=== PATIENT | female | born 1935 | race Caucasian/White ===

== ENCOUNTER 2020-01-13 06:21 | Outpatient (CLI) | payer MEDICARE, OTHER | END 2020-01-13 06:22 | disposition critical access hospital (66) | LOC: EMS 06:21 | PROVIDERS: ATTEND Surgery | DX: R10.9 Unspecified abdominal pain (principal); K92.0 Hematemesis | CPT/HCPCS: A0425; A0429 ==

== ENCOUNTER 2020-01-13 06:54 | Inpatient (IN) | payer MEDICARE, OTHER ==
[2020-01-13 07:57] LABS: INR 1.3 (0.8-1.2); PT - PROTHROMBIN TIME 14.2 secs (9.9-12.6)
[2020-01-13] MEDS ORDERED: PANTOPRAZOLE 40 MG VIAL IVP STA (08:02)
[2020-01-13] MEDS ORDERED: FOLIC ACID INJ 1 MG, THIAMINE INJ 100 MG, MAGNESIUM SULFATE 2 GM, MULTIVITAMIN 10 ML in... IV STA ×5 (08:03)
[2020-01-13 08:04] LABS: ALBUMIN 2.7 g/dL (3.2-5.5); ALBUMIN/GLOBULIN RATIO 1.4 (1.0-2.2); ALKALINE PHOSPHATASE 37 IU/L (42-121); ALT ALANINE AMINOTRANSFERASE 17 IU/L (10-60); AST ASPARTATE AMINOTRANSFERASE 15 IU/L (10-42); BILIRUBIN,TOTAL 0.5 mg/dL (0.2-1.0); BUN - BLOOD UREA NITROGEN 45 mg/dL (6-20); CALCIUM 7.8 mg/dL (8.5-10.3); CARBON DIOXIDE - CO2 28 mmol/L (21-32); CHLORIDE 102 mmol/L (101-111); CREATININE 0.9 mg/dL (0.4-1.0); GLUCOSE 162 mg/dL (70-100); LIPASE 36 U/L (22-51); SODIUM 136 mmol/L (135-145); TOTAL PROTEIN 4.6 g/dL (6.7-8.2)
--- NOTE | 2020-01-13 08:05 | ED Physician Documentation ---
PD HPI GI BLEED - Stated complaint Stated Complaint: ABD PX - Chief complaint Chief Complaint: Abd Pain - History obtained from History obtained from: Patient, EMS - History of Present Illness Timing - onset: Enter time (521), Today Timing - duration: Hours Timing - details: Abrupt onset, Still present Associated symptoms: Hematemesis, Black/tarry stool Contributing factors: Alcohol use, Aspirin use, NSAID use. No: Recent antibiotics, Anticoagulated Improved by: Vomiting Similar symptoms before: Has not had sx before Recently seen: Not recently seen Review of Systems Constitutional: denies: Fever, Chills, Myalgias, Fatigue Eyes: denies: Decreased vision Ears: denies: Ear pain Nose: denies: Rhinorrhea / runny nose, Congestion Throat: denies: Sore throat Cardiac: denies: Chest pain / pressure, Palpitations Respiratory: reports: Cough. denies: Dyspnea GI: reports: Abdominal Pain, Nausea, Vomiting, Constipation, Diarrhea, Hematemesis, Bloody / black stool : denies: Dysuria, Frequency Skin: denies: Rash Musculoskeletal: denies: Neck pain, Back pain, Extremity pain Neurologic: denies: Generalized weakness, Focal weakness, Numbness PD PAST MEDICAL HISTORY - Past Medical History Cardiovascular: Hypertension, Coronary artery disease - Past Surgical History Cardiovascular: CABG - Allergies Allergies/Adverse Reactions: Allergies Allergy/AdvReac Type Severity Reaction Status Date / Time No Known Drug Allergies Allergy Verified 01/13/20 07:36 PD ED PE NORMAL - Vitals Vital signs reviewed: Yes (hypertensive with wide pulse pressure ) - General General: Alert and oriented X 3, No acute distress, Well developed/nourished, Other (pale appearing female pleasant and cooperative ) - HEENT HEENT: Atraumatic, PERRL, EOMI, Other (blood tinged lips ) - Neck Neck: Supple, no meningeal sign, No bony TTP - Cardiac Cardiac: RRR, No murmur - Respiratory Respiratory: No respiratory distress, Clear bilaterally - Abdomen Abdomen: Soft, Other (mild epigastric tenderness isolated to epigastrium without gaurding or rebound no referred tenderness. ) - Back Back: No CVA TTP, No spinal TTP - Derm Derm: Normal color, Warm and dry, No rash - Extremities Extremities: No deformity, No edema - Neuro Neuro: Alert and oriented X 3, management instructor 2-12 intact, No motor deficit, No sensory deficit, Normal speech Eye Opening: Spontaneous Motor: Obeys Commands Verbal: Oriented GCS Score: 15 - Psych Psych: Normal mood, Normal affect Results - Vitals Vitals: Vital Signs - 24 hr 01/13/20 01/13/20 01/13/20 06:55 07:28 09:00 Temperature 36.5 C Heart Rate 95 89 99 Respiratory 18 14 15 Rate Blood Pressure 137/48 H 116/56 L 124/49 L O2 Saturation 97 99 99 01/13/20 09:05 Temperature 36.9 C Heart Rate 95 Respiratory 21 Rate Blood Pressure 124/49 L O2 Saturation Oxygen O2 Source Room air - Labs Labs: Laboratory Tests 01/13/20 01/13/20 01/13/20 06:18 07:30 07:30 WBC 9.1 RBC 1.96 L Hgb 6.3 L* Hct 19.8 L* MCV 101.0 H MCH 32.1 H MCHC 31.8 L RDW 12.9 Plt Count 238 MPV 9.5 Neut # (Auto) 7.9 H Lymph # (Auto) 0.5 L Dane # (Auto) 0.5 Eos # (Auto) 0.0 Baso # (Auto) 0.0 Absolute Nucleated RBC 0.00 Nucleated RBC % 0.0 PT 14.2 H INR 1.3 H Sodium Potassium Chloride Carbon Dioxide Anion Gap BUN Creatinine Estimated GFR (MDRD) Glucose Calcium Total Bilirubin AST ALT Alkaline Phosphatase Total Protein Albumin Globulin Albumin/Globulin Ratio Lipase Ethyl Alcohol Blood Type A POSITIVE Blood Type Recheck Antibody Screen NEGATIVE Crossmatch IS Only See Detail 01/13/20 01/13/20 07:30 08:24 WBC RBC Hgb Hct MCV MCH MCHC RDW Plt Count MPV Neut # (Auto) Lymph # (Auto) Dane # (Auto) Eos # (Auto) Baso # (Auto) Absolute Nucleated RBC Nucleated RBC % PT INR Sodium 136 Potassium 3.5 Chloride 102 Carbon Dioxide 28 Anion Gap 6.0 BUN 45 H Creatinine 0.9 Estimated GFR (MDRD) 60 L Glucose 162 H Calcium 7.8 L Total Bilirubin 0.5 AST 15 ALT 17 Alkaline Phosphatase 37 L Total Protein 4.6 L Albumin 2.7 L Globulin 1.9 L Albumin/Globulin Ratio 1.4 Lipase 36 Ethyl Alcohol < 5.0 Blood Type Blood Type Recheck A POSITIVE Antibody Screen Crossmatch IS Only PD MEDICAL DECISION MAKING - ED course Complexity details: reviewed results, re-evaluated patient, considered differential, d/w patient, d/w principal consultant ([id number] peralta plan on scoping ) ED course: 84-year-old female with a history of coronary artery disease and hypertension has developed an abdominal pain over the past 4 days and she has been taking a lot more aspirin than usual and this morning she had vomiting of bright red blood as well as jet black stool from the rectum. She comes into the emergency department pale and has elevated BUN and what appears to be blood loss anemia. Her anemia is in the transfusion range and transfusion is begun in the emergency department. She is also administered Protonix intravenously and a banana bag. Dr. Franklin is consulted in the case and will back up with scoping as needed and Dr. Durán is consulted the case and graciously agrees to admit the patient to the hospital for further care. Departure - Departure Disposition: 66 [facility] DC/Xfer Clinical Impression: GI bleeding Qualifiers: GI bleed type/associated pathology: gastrointestinal hemorrhage with hematemesis Qualified Code(s): K92.0 - Hematemesis Condition: Stable
[2020-01-13 08:06] LABS: BASOPHILS % (AUTO) 0.4 %; EOSINOPHILS % (AUTO) 0.3 %; LYMPHOCYTES # (AUTO) 0.5 10^3/uL (1.5-3.5); LYMPHOCYTES % (AUTO) 5.9 %; MEAN CORPUSCULAR HEMOGLOBIN 32.1 pg (27.0-31.0); MEAN CORPUSCULAR HGB CONC 31.8 g/dL (32.0-36.0); MEAN PLATELET VOLUME 9.5 fL (7.9-10.8); MONOCYTES # (AUTO) 0.5 10^3/uL (0.0-1.0); MONOCYTES % (AUTO) 5.3 %; NEUTROPHILS # (AUTO) 7.9 10^3/uL (1.5-6.6); NEUTROPHILS % (AUTO) 87.1 %; PLT - PLATELET COUNT 238 10^3/uL (130-450); RED BLOOD COUNT 1.96 10^6/uL (4.20-5.40); RED CELL DISTRIBUTION WIDTH 12.9 % (12.0-15.0); WHITE BLOOD COUNT 9.1 x10^3/uL (4.8-10.8)
[2020-01-13 08:11] LABS: HGB - HEMOGLOBIN 6.3 g/dL (12.0-16.0)
[2020-01-13] MEDS ORDERED: SODIUM CHLORIDE FLUSH 0.9% 10 ML SYRINGE IVP PRN (09:08)
[2020-01-13] MEDS ORDERED: ONDANSETRON 4 MG/2 ML VIAL IVP PRN (09:08)
--- NOTE | 2020-01-13 09:14 | HISTORY & PHYSICAL EXAMINATION ---
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 She states that this morning she woke up at around 4:40 AM and had some epigastric pain and nausea. She went to the bathroom and she had a large episode of hematemesis. She then had a bowel movement and noticed her sto ol was dark.. She had another episode of hematemesis after EMS had arrived. She reports she has been taking full dose aspirin 3 tablets twice a day for the past month to help with her arthritis pain. She has never had endoscopy but she did have a colonoscopy over 10 years ago which was unremarkable to her knowledge. She currently reports some mild epigastric discomfort but no significant abdominal pain. She reports no nausea or vomiting at this time. She would like to drink some water. She reports feeling fatigued and weak since yesterday evening. She reports no chest pain, dyspnea, fevers, chills. She does drink a glass of wine a few times a week with her last beverage being yesterday. She does not drink alcohol on a daily basis. In the emergency department, she is on be afebrile temperature of 36.9 C. She is tachycardic with a heart of 95. Blood pressure is 124/49. She is not tachypneic and saturating well on room air. Labs are significant for hemoglobin of 6.3. Her INR was 1.3. BUN is elevated at 45. She was given 1 unit of blood in the emergency department and medicine was consulted for admission. The emergency department provider did speak with general surgery and they are aware of the patient for endoscopy. I did discuss goals of care the patient and she would like to be a DNR with no heroic measures. History - Past Medical History Cardiovascular: reports: Hypertension, Coronary artery disease, Valve disorder GI: reports: None FURNACE CHARGER: reports: Ovarian cysts Musculoskeletal: reports: Osteoarthritis - Past Surgical History /FURNACE CHARGER: reports: Other (Ovarian cystectomy x2.) Cardiovascular: reports: CABG, Valve replacement (Bioproshetic valve per janice hammer.) - Family & Social History Family History Comment/Other: Reports her father from myocardial infarction at the age of 49. Her mother from breast cancer in her early 50s. Her brother from lung cancer in his 50s. Living arrangement: At home Living Situation: With family Social History Notes: She lives at home with her daughter, rAt. She did smoke a pack a day for approximately 30 years but quit before she turned 51. She does drink a glass of wine a few times a week but does not drink on a daily basis. Meds/Allgy - Home Medications Home Medications: Ambulatory Orders Medication Instructions Recorded Confirmed Ascorbic Acid [Vitamin C] 500 mg PO DAILY 01/13/20 01/13/20 Aspirin [Aspirin EC] 81 mg PO DAILY 01/13/20 01/13/20 Atorvastatin Calcium 40 mg PO QPM 01/13/20 01/13/20 Chlorthalidone 25 mg PO DAILY 01/13/20 01/13/20 Ferrous Sulfate 325 mg PO DAILYWM 01/13/20 01/13/20 Losartan Potassium 100 mg PO DAILY 01/13/20 01/13/20 carvediloL [Carvedilol] 12.5 mg PO BID 01/13/20 01/13/20 - Allergies Allergies/Adverse Reactions: Allergies Allergy/AdvReac Type Severity Reaction Status Date / Time No Known Drug Allergies Allergy Verified 01/13/20 07:36 Review of Systems - Constitutional Constitutional: reports: Fatigue, Malaise, Weakness. denies: Fever, Chills, Poor appetite - Ears, Nose & Throat Ears, Nose & Throat: denies: Nasal congestion - Cardiovascular Cariovascular: denies: Chest pain, Lightheadedness, Exertional dyspnea, Decr. exercise tolerance - Respiratory Respiratory: reports: Cough. denies: Sputum production, SOB at rest, SOB with exertion - Gastrointestinal Gastrointestinal: reports: Abdominal pain, Black stools, Nausea, Vomiting, [place] blood emesis, Bloating - Genitourinary Genitourinary: denies: Dysuria, Frequency, Urgency, Hematuria - Musculoskeletal Musculoskeletal: denies: Muscle pain - Neurological Neurological: reports: General weakness, Headache. denies: Focal weakness, Dizziness, Numbness - Hematologic/Lymphatic Hematologic/Lymphatic: denies: Bleeding tendencies - All Other Systems All Other Systems: reports: Reviewed and negative Prior Level of Functionality: She is independent with her ADLs. Exam - Vital Signs Reviewed Vital Signs: Yes Vital Signs: Vital Signs x48h Temp Pulse Resp BP Pulse Ox 01/13/20 09:12 98.8 C H 99 16 130/58 L 01/13/20 09:05 36.9 C 95 21 124/49 L 01/13/20 09:00 99 15 124/49 L 99 01/13/20 07:28 89 14 116/56 L 99 01/13/20 06:55 36.5 C 95 18 137/48 H 97 - Physical Exam General Appearance: positive: No acute distress, Alert Eyes Bilateral: positive: Normal inspection, Other (Conjunctivae pallor.) ENT: positive: Pharynx nml, Other (There is dry blood around the bilateral nares. No blood noted in the oropharynx.) Neck: positive: Nml inspection Respiratory: positive: No respiratory distress. negative: Wheezes, Rales, Rhonchi Cardiovascular: positive: No murmur, Tachycardia. negative: Irregularly irregular, Bradycardia, Systolic murmur, Diastolic murmur Abdomen: positive: Nml bowel sounds, Tenderness (Mild epigastric tenderness.). negative: Non-tender, Guarding, Rebound Skin: positive: Warm, Dry, Pallor Extremities: positive: Full ROM, No pedal edema Neurologic/Psychiatric: positive: Oriented x3, Motor nml. negative: Disoriented to place, Disoriented to time Conclusion/Plan - Problem List (1) Upper GI bleed Conclusion/Plan: This is likely secondary to her NSAID use and suspect either gastritis or an ulcer as the culprit. Although she does drink alcohol, this is not on a daily basis and do not suspect cirrhosis or varices. Presented with hematemesis and dark bloody stools. She is anemic with hemoglobin less than 7. Start her on Protonix IV twice daily. Clear liquid diet for the time being. N.p.o. at midnight. I spoke with general surgery and they will perform an endoscopy in the morning. (2) Acute blood loss anemia Conclusion/Plan: Secondary to the upper GI bleed. Hemoglobin is 6.3 on admission. She received 1 unit in the emergency department and we will transfuse another 1 unit of packed red blood cells. SCDs for DVT prophylaxis. No chemical DVT prophylaxis given her GI bleed. We will trend her hemoglobin every 8 hours. Goal hemoglobin greater than 8 given her history of coronary artery disease. 2 units of packed red blood cells are on hold. (3) Coronary artery disease Conclusion/Plan: She is on aspirin, atorvastatin, carvedilol at home. Currently denies any angina. We will resume her carvedilol if her blood pressure remains stable as he did not want to become hypotensive given her GI bleed. We will hold aspirin given her upper GI bleed. We will continue her atorvastatin. We will check an EKG. Of note, her food technology teacher is Dr. Pratt at [place]. (4) Hypertension Conclusion/Plan: She is on losartan, chlorthalidone, carvedilol at home. She is currently normotensive but slightly tachycardic with a heart rate in the 90s. Even her GI bleed, we will hold her home antihypertensives for the time being. If there is no evidence of further bleeding and if she becomes hypotensive, we will slowly resume these medications. (5) History of aortic valve replacement with bioprosthetic valve Conclusion/Plan: She has history of a aortic valve replacement with a bioprosthetic valve in 2009 at [facility] in [place]. - Lab Results Lab results reviewed: Yes Antonio Bones: 01/13/20 07:30 01/13/20 07:30 - EKG Results EKG Interpreted Independently: Yes EKG Findings: Her EKG shows a left bundle branch block which is similar to her prior EKG which was obtained from [facility] [place]. Core Measures - Anticipated LOS I expect patient to be DC'd or transferred within 96 hours.: Yes - Issues Hospital Issues and Management Plan: 84 year old female with history of CAD who is admitted for acute blood loss anemia secondary to upper GI bleed. Will start her on Protonix IV and consult General Surgery for endoscopy. Transfuse PRBC for goal Hgb >8 given her CAD. Trend hemoglobin. - DVT/VTE - Prophylaxis VTE/DVT Device ordered at admit?: Yes VTE/DVT Prophylaxis med ordered at admit?: No Not Ordered - Medical Reason: Contraindicated
--- NOTE | 2020-01-13 11:15 | PHARMACY PROGRESS NOTE ---
- Best Possible Medication History Admit Date and Time: 01/13/20 0908 Processed by: Pharmacy Medication History completed: Yes Patient Interview: Completed Secondary Source(s): Physician records, Pharmacy records, Insurance records As the person ultimately responsible for medication therapy, providers are able to order a medication from an existing home medication list in [facility] via the "Reconcile Routine" prior to Confirmation of that medication by direct support professional. Such practice is discouraged except when the physician, in their clinical judgment, deems that a medical need exists for a medication without regard to previous use.
[2020-01-13] MEDS: LACTATED RINGERS 1,000 ML IV SCH (14:53)
[2020-01-13 15:25] LABS: BILIRUBIN,URINE NEGATIVE (NEGATIVE); GLUCOSE, URINE (UA) NEGATIVE (NEGATIVE); KETONES,URINE (UA) NEGATIVE (NEGATIVE); LEUKOCYTE ESTERASE, URINE NEGATIVE (NEGATIVE); NITRITE,URINE POSITIVE (NEGATIVE); OCCULT BLOOD,URINE MODERATE (NEGATIVE); PROTEIN,URINE NEGATIVE (NEGATIVE); UROBILINOGEN,URINE 0.2 (NORMAL) E.U./dL (NORMAL)
[2020-01-13 15:29] LABS: CLARITY,URINE CLEAR (CLEAR)
[2020-01-13 15:35] LABS: BACTERIA,URINE Many /HPF (None Seen); RBC,URINE 0-5 /HPF (0-5); SQUAMOUS EPITHELIAL CELL,UR MOD Squamous (<= Few)
[2020-01-13] MEDS: SODIUM CHLORIDE FLUSH 0.9% 10 ML SYRINGE IVP SCH (16:56)
[2020-01-13 21:15] LABS: HGB - HEMOGLOBIN 8.1 g/dL (12.0-16.0)
[2020-01-13] MEDS: ATORVASTATIN 40 MG TABLET PO SCH (21:49)
[2020-01-13] MEDS: PANTOPRAZOLE 40 MG VIAL IVP SCH (21:49)
[2020-01-14] MEDS: LACTATED RINGERS 1,000 ML IV SCH ×3 (00:38→16:37)
[2020-01-14] MEDS: SODIUM CHLORIDE FLUSH 0.9% 10 ML SYRINGE IVP SCH ×3 (00:39→20:35)
[2020-01-14 05:54] LABS: BASOPHILS % (AUTO) 0.5 %; EOSINOPHILS # (AUTO) 0.1 10^3/uL (0.0-0.7); EOSINOPHILS % (AUTO) 1.3 %; LYMPHOCYTES # (AUTO) 1.7 10^3/uL (1.5-3.5); LYMPHOCYTES % (AUTO) 22.5 %; MEAN CORPUSCULAR HGB CONC 33.5 g/dL (32.0-36.0); MEAN CORPUSCULAR VOLUME 95.6 fL (81.0-99.0); MEAN PLATELET VOLUME 9.3 fL (7.9-10.8); MONOCYTES # (AUTO) 0.9 10^3/uL (0.0-1.0); MONOCYTES % (AUTO) 11.4 %; NEUTROPHILS % (AUTO) 63.9 %; PLT - PLATELET COUNT 173 10^3/uL (130-450); RED BLOOD COUNT 2.03 10^6/uL (4.20-5.40); RED CELL DISTRIBUTION WIDTH 15.3 % (12.0-15.0); WHITE BLOOD COUNT 7.8 x10^3/uL (4.8-10.8)
[2020-01-14 06:04] LABS: HGB - HEMOGLOBIN 6.5 g/dL (12.0-16.0)
[2020-01-14 06:06] LABS: CREATININE 0.9 mg/dL (0.4-1.0); MAGNESIUM 1.5 mg/dL (1.7-2.8); PHOSPHORUS 2.7 mg/dL (2.5-4.6)
[2020-01-14 06:32] LABS: FOLATE 9.92 ng/mL (5.90 - >24.8)
[2020-01-14] MEDS ORDERED: FUROSEMIDE 20 MG/2 ML VIAL IVP PRN (06:35)
[2020-01-14] MEDS ORDERED: diphenhydrAMINE 25 MG CAPSULE PO ONE (06:37)
[2020-01-14] MEDS ORDERED: POTASSIUM CHLORIDE 20 MEQ TABLET PO ONE (07:10)
--- NOTE | 2020-01-14 07:32 | PROVIDER PROGRESS NOTE ---
Subjective - Prog Note Date Prog Note Date: 01/14/20 - Subjective Subjective: She reports no more episodes of vomiting and she has not noticed any bleeding. She denies any abdominal pain. Hemoglobin did decrease this morning down to below 7. She is being transfused with 2 units of packed red blood cells. Current Medications - Current Medications Current Medications: Active Medications Ascorbic Acid (Vitamin C) 500 mg PO DAILY [facility] Last Admin: 01/14/20 08:48 Dose: 500 mg Atorvastatin Calcium (Lipitor) 40 mg PO QPM [facility] Last Admin: 01/13/20 21:49 Dose: 40 mg Furosemide (Lasix Inj 20mg Vial) 20 mg IVP ONCE PRN PRN Reason: Between units Stop: 01/15/20 06:34 Last Admin: 01/14/20 10:22 Dose: 20 mg Lactated Ringer's (Lr) 1,000 mls @ 100 mls/hr IV .Q10H [facility] Last Infusion: 01/14/20 08:56 Dose: 0 mls/hr Ondansetron HCl (Zofran Inj) 4 mg IVP Q6HR PRN PRN Reason: Nausea / Vomiting Pantoprazole Sodium (Protonix) 40 mg IVP BID [facility] Last Admin: 01/14/20 08:48 Dose: 40 mg Sodium Chloride (Normal Saline Flush 0.9%) 10 ml IVP PRN PRN PRN Reason: NEEDED PER PROVIDER ORDERS Last Admin: 01/13/20 21:49 Dose: 10 ml Sodium Chloride (Normal Saline Flush 0.9%) 10 ml IVP 0100,0900,1700 [facility] Last Admin: 01/14/20 08:56 Dose: 10 ml Ascorbic Acid [Vitamin C] 500 mg PO DAILY 01/13/20 Aspirin [Aspirin EC] 81 mg PO DAILY 01/13/20 Atorvastatin Calcium 40 mg PO QPM 01/13/20 Chlorthalidone 25 mg PO DAILY 01/13/20 Ferrous Sulfate 325 mg PO DAILYWM 01/13/20 Losartan Potassium 100 mg PO DAILY 01/13/20 carvediloL [Carvedilol] 12.5 mg PO BID 01/13/20 Objective - Vital Signs/Intake & Output Reviewed Vital Signs: Yes Vital Signs: Vital Signs x48h Temp Pulse Resp BP Pulse Ox 01/14/20 03:45 37.1 C 90 16 131/51 H 96 Intake & Output: Intake & Output 01/11/20 01/12/20 01/13/20 01/14/20 23:59 23:59 23:59 23:59 Intake Total 3010.2 80 Output Total 300 550 Balance 2710.2 -470 - Objective General Appearance: positive: No acute distress, Alert Eyes Bilateral: positive: Normal inspection ENT: positive: ENT inspection nml Neck: positive: Nml inspection Respiratory: positive: No respiratory distress. negative: Wheezes, Rales Cardiovascular: positive: Regular rate & rhythm, No murmur. negative: Tachycardia, Bradycardia, Systolic murmur Abdomen: positive: Non-tender, No distention. negative: Tenderness Skin: positive: Warm, Dry Extremities: positive: Full ROM, No pedal edema Neurologic/Psychiatric: positive: Oriented x3. negative: Disoriented to person, Disoriented to place, Disoriented to time - Lab Results Fish Bones: 01/14/20 05:10 01/14/20 05:10 Other Labs: Lab Results x24hrs 01/14/20 01/14/20 01/14/20 Range/Units 05:10 05:10 05:10 WBC 7.8 (4.8-10.8) x10^3/uL RBC 2.03 L (4.20-5.40) 10^6/uL Hgb 6.5 L* (12.0-16.0) g/dL Hct 19.4 L* (37.0-47.0) % MCV 95.6 (81.0-99.0) fL MCH 32.0 H (27.0-31.0) pg MCHC 33.5 (32.0-36.0) g/dL RDW 15.3 H (12.0-15.0) % Plt Count 173 (130-450) 10^3/uL MPV 9.3 (7.9-10.8) fL Neut # (Auto) 5.0 (1.5-6.6) 10^3/uL Lymph # (Auto) 1.7 (1.5-3.5) 10^3/uL [place] # (Auto) 0.9 (0.0-1.0) 10^3/uL Eos # (Auto) 0.1 (0.0-0.7) 10^3/uL Baso # (Auto) 0.0 (0.0-0.1) 10^3/uL Absolute Nucleated RBC 0.00 x10^3/uL Nucleated RBC % 0.0 /100WBC PT (9.9-12.6) secs INR (0.8-1.2) Sodium 135 (135-145) mmol/L Potassium 2.8 L (3.5-5.0) mmol/L Chloride 102 (101-111) mmol/L Carbon Dioxide 28 (21-32) mmol/L Anion Gap 5.0 L (6-13) BUN 31 H (6-20) mg/dL Creatinine 0.9 (0.4-1.0) mg/dL Estimated GFR (MDRD) 60 L (>89) Glucose 111 H (70-100) mg/dL Calcium 8.0 L (8.5-10.3) mg/dL Phosphorus 2.7 (2.5-4.6) mg/dL Magnesium 1.5 L (1.7-2.8) mg/dL Total Bilirubin (0.2-1.0) mg/dL AST (10-42) IU/L ALT (10-60) IU/L Alkaline Phosphatase (42-121) IU/L Total Protein (6.7-8.2) g/dL Albumin (3.2-5.5) g/dL Globulin (2.1-4.2) g/dL Albumin/Globulin Ratio (1.0-2.2) Lipase (22-51) U/L Vitamin B12 90 L (180-914) pg/mL Folate 9.92 (5.90 - >24.8) ng/mL Urine Color Urine Clarity (CLEAR) Urine pH (5.0-7.5) PH Ur Specific [place] (1.002-1.030) Urine Protein (NEGATIVE) mg/dL Urine Glucose (UA) (NEGATIVE) mg/dL Urine Ketones (NEGATIVE) mg/dL Urine Occult Blood (NEGATIVE) Urine Nitrite (NEGATIVE) Urine Bilirubin (NEGATIVE) Urine Urobilinogen (NORMAL) E.U./dL Ur Leukocyte Esterase (NEGATIVE) Urine RBC (0-5) /HPF Urine WBC (0-5) /HPF Ur Squamous Epith Cells (<= Few) Urine Bacteria (None Seen) /HPF Ur Microscopic Review Urine Culture Comments Ethyl Alcohol mg/dL Blood Type Blood Type Recheck Antibody Screen Crossmatch IS Only 01/13/20 01/13/20 01/13/20 Range/Units 20:45 15:00 08:24 WBC (4.8-10.8) x10^3/uL RBC (4.20-5.40) 10^6/uL Hgb 8.1 L (12.0-16.0) g/dL Hct 23.8 L (37.0-47.0) % MCV (81.0-99.0) fL MCH (27.0-31.0) pg MCHC (32.0-36.0) g/dL RDW (12.0-15.0) % Plt Count (130-450) 10^3/uL MPV (7.9-10.8) fL Neut # (Auto) (1.5-6.6) 10^3/uL Lymph # (Auto) (1.5-3.5) 10^3/uL [place] # (Auto) (0.0-1.0) 10^3/uL Eos # (Auto) (0.0-0.7) 10^3/uL Baso # (Auto) (0.0-0.1) 10^3/uL Absolute Nucleated RBC x10^3/uL Nucleated RBC % /100WBC PT (9.9-12.6) secs INR (0.8-1.2) Sodium (135-145) mmol/L Potassium (3.5-5.0) mmol/L Chloride (101-111) mmol/L Carbon Dioxide (21-32) mmol/L Anion Gap (6-13) BUN (6-20) mg/dL Creatinine (0.4-1.0) mg/dL Estimated GFR (MDRD) (>89) Glucose (70-100) mg/dL Calcium (8.5-10.3) mg/dL Phosphorus (2.5-4.6) mg/dL Magnesium (1.7-2.8) mg/dL Total Bilirubin (0.2-1.0) mg/dL AST (10-42) IU/L ALT (10-60) IU/L Alkaline Phosphatase (42-121) IU/L Total Protein (6.7-8.2) g/dL Albumin (3.2-5.5) g/dL Globulin (2.1-4.2) g/dL Albumin/Globulin Ratio (1.0-2.2) Lipase (22-51) U/L Vitamin B12 (180-914) pg/mL Folate (5.90 - >24.8) ng/mL Urine Color YELLOW Urine Clarity CLEAR (CLEAR) Urine pH 6.0 (5.0-7.5) PH Ur Specific [place] 1.020 (1.002-1.030) Urine Protein NEGATIVE (NEGATIVE) mg/dL Urine Glucose (UA) NEGATIVE (NEGATIVE) mg/dL Urine Ketones NEGATIVE (NEGATIVE) mg/dL Urine Occult Blood MODERATE H (NEGATIVE) Urine Nitrite POSITIVE H (NEGATIVE) Urine Bilirubin NEGATIVE (NEGATIVE) Urine Urobilinogen 0.2 (NORMAL) (NORMAL) E.U./dL Ur Leukocyte Esterase NEGATIVE (NEGATIVE) Urine RBC 0-5 (0-5) /HPF Urine WBC 0-3 (0-5) /HPF Ur Squamous Epith Cells MOD Squamous H (<= Few) Urine Bacteria Many H (None Seen) /HPF Ur Microscopic Review INDICATED Urine Culture Comments NOT INDICATED Ethyl Alcohol mg/dL Blood Type Blood Type Recheck A POSITIVE Antibody Screen Crossmatch IS Only 01/13/20 01/13/20 01/13/20 Range/Units 07:30 07:30 07:30 WBC 9.1 (4.8-10.8) x10^3/uL RBC 1.96 L (4.20-5.40) 10^6/uL Hgb 6.3 L* (12.0-16.0) g/dL Hct 19.8 L* (37.0-47.0) % MCV 101.0 H (81.0-99.0) fL MCH 32.1 H (27.0-31.0) pg MCHC 31.8 L (32.0-36.0) g/dL RDW 12.9 (12.0-15.0) % Plt Count 238 (130-450) 10^3/uL MPV 9.5 (7.9-10.8) fL Neut # (Auto) 7.9 H (1.5-6.6) 10^3/uL Lymph # (Auto) 0.5 L (1.5-3.5) 10^3/uL [place] # (Auto) 0.5 (0.0-1.0) 10^3/uL Eos # (Auto) 0.0 (0.0-0.7) 10^3/uL Baso # (Auto) 0.0 (0.0-0.1) 10^3/uL Absolute Nucleated RBC 0.00 x10^3/uL Nucleated RBC % 0.0 /100WBC PT 14.2 H (9.9-12.6) secs INR 1.3 H (0.8-1.2) Sodium 136 (135-145) mmol/L Potassium 3.5 (3.5-5.0) mmol/L Chloride 102 (101-111) mmol/L Carbon Dioxide 28 (21-32) mmol/L Anion Gap 6.0 (6-13) BUN 45 H (6-20) mg/dL Creatinine 0.9 (0.4-1.0) mg/dL Estimated GFR (MDRD) 60 L (>89) Glucose 162 H (70-100) mg/dL Calcium 7.8 L (8.5-10.3) mg/dL Phosphorus (2.5-4.6) mg/dL Magnesium (1.7-2.8) mg/dL Total Bilirubin 0.5 (0.2-1.0) mg/dL AST 15 (10-42) IU/L ALT 17 (10-60) IU/L Alkaline Phosphatase 37 L (42-121) IU/L Total Protein 4.6 L (6.7-8.2) g/dL Albumin 2.7 L (3.2-5.5) g/dL Globulin 1.9 L (2.1-4.2) g/dL Albumin/Globulin Ratio 1.4 (1.0-2.2) Lipase 36 (22-51) U/L Vitamin B12 (180-914) pg/mL Folate (5.90 - >24.8) ng/mL Urine Color Urine Clarity (CLEAR) Urine pH (5.0-7.5) PH Ur Specific [place] (1.002-1.030) Urine Protein (NEGATIVE) mg/dL Urine Glucose (UA) (NEGATIVE) mg/dL Urine Ketones (NEGATIVE) mg/dL Urine Occult Blood (NEGATIVE) Urine Nitrite (NEGATIVE) Urine Bilirubin (NEGATIVE) Urine Urobilinogen (NORMAL) E.U./dL Ur Leukocyte Esterase (NEGATIVE) Urine RBC (0-5) /HPF Urine WBC (0-5) /HPF Ur Squamous Epith Cells (<= Few) Urine Bacteria (None Seen) /HPF Ur Microscopic Review Urine Culture Comments Ethyl Alcohol < 5.0 mg/dL Blood Type Blood Type Recheck Antibody Screen Crossmatch IS Only 01/13/20 Range/Units 06:18 WBC (4.8-10.8) x10^3/uL RBC (4.20-5.40) 10^6/uL Hgb (12.0-16.0) g/dL Hct (37.0-47.0) % MCV (81.0-99.0) fL MCH (27.0-31.0) pg MCHC (32.0-36.0) g/dL RDW (12.0-15.0) % Plt Count (130-450) 10^3/uL MPV (7.9-10.8) fL Neut # (Auto) (1.5-6.6) 10^3/uL Lymph # (Auto) (1.5-3.5) 10^3/uL [place] # (Auto) (0.0-1.0) 10^3/uL Eos # (Auto) (0.0-0.7) 10^3/uL Baso # (Auto) (0.0-0.1) 10^3/uL Absolute Nucleated RBC x10^3/uL Nucleated RBC % /100WBC PT (9.9-12.6) secs INR (0.8-1.2) Sodium (135-145) mmol/L Potassium (3.5-5.0) mmol/L Chloride (101-111) mmol/L Carbon Dioxide (21-32) mmol/L Anion Gap (6-13) BUN (6-20) mg/dL Creatinine (0.4-1.0) mg/dL Estimated GFR (MDRD) (>89) Glucose (70-100) mg/dL Calcium (8.5-10.3) mg/dL Phosphorus (2.5-4.6) mg/dL Magnesium (1.7-2.8) mg/dL Total Bilirubin (0.2-1.0) mg/dL AST (10-42) IU/L ALT (10-60) IU/L Alkaline Phosphatase (42-121) IU/L Total Protein (6.7-8.2) g/dL Albumin (3.2-5.5) g/dL Globulin (2.1-4.2) g/dL Albumin/Globulin Ratio (1.0-2.2) Lipase (22-51) U/L Vitamin B12 (180-914) pg/mL Folate (5.90 - >24.8) ng/mL Urine Color Urine Clarity (CLEAR) Urine pH (5.0-7.5) PH Ur Specific [place] (1.002-1.030) Urine Protein (NEGATIVE) mg/dL Urine Glucose (UA) (NEGATIVE) mg/dL Urine Ketones (NEGATIVE) mg/dL Urine Occult Blood (NEGATIVE) Urine Nitrite (NEGATIVE) Urine Bilirubin (NEGATIVE) Urine Urobilinogen (NORMAL) E.U./dL Ur Leukocyte Esterase (NEGATIVE) Urine RBC (0-5) /HPF Urine WBC (0-5) /HPF Ur Squamous Epith Cells (<= Few) Urine Bacteria (None Seen) /HPF Ur Microscopic Review Urine Culture Comments Ethyl Alcohol mg/dL Blood Type A POSITIVE Blood Type Recheck Antibody Screen NEGATIVE Crossmatch IS Only See Detail ABX Reporting Has patient been on IV antibiotics over the past 48 hours?: No Assessment/Plan - Problem List (1) Upper GI bleed Impression: Suspect secondary to her NSAID use and likely due to gastritis or an ulcer. Her hemoglobin continues to decline. She is n.p.o. for an EGD today. Continue with Protonix IV twice daily. Await EGD results. (2) Acute blood loss anemia Impression: Globin decreased again this morning to less than 7 despite 2 units of packed red blood cells yesterday. She is currently being transferred to the another 2 units of packed red blood cells. There is no evidence of bleeding at this time. We will continue to trend her hemoglobin every 8 hours. Goal hemoglobin greater than 8 given her coronary artery disease. (3) Coronary artery disease Impression: Stable. EKG shows left bundle branch block which is old. We will transfuse hemoglobin for goal greater than 8. (4) Hypertension Impression: Blood pressures remained stable with systolic in the 130s. We will resume her antihypertensives once her hemoglobin stabilizes with no evidence of further bleeding. (5) History of aortic valve replacement with bioprosthetic valve Impression: Stable. Continue outpatient follow-up. (6) Hypokalemia Impression: Will replace orally and intravenously.
--- NOTE | 2020-01-14 08:06 | ANESTHESIA ---
Pre-Anesthesia VS, & Labs - Diagnosis GI Bleed - Procedure EGD under MAC Vital Signs: Temp Pulse Resp BP Pulse Ox 37 C 90 18 139/48 H 97 01/14/20 07:32 01/14/20 07:32 01/14/20 07:32 01/14/20 07:32 01/14/20 07:32 Height 5 ft 5 in Weight (kg) 78 kg Body Mass Index 28.6 - NPO >8 hours - Is Patient ?: No - Lab Results Current Lab Results: Laboratory Tests 01/14/20 05:10: Vitamin B12 90 L, Folate 9.92 01/14/20 05:10: Sodium 135, Potassium 2.8 L, Chloride 102, Carbon Dioxide 28, Anion Gap 5.0 L, BUN 31 H, Creatinine 0.9, Estimated GFR (MDRD) 60 L, Glucose 111 H, Calcium 8.0 L, Phosphorus 2.7, Magnesium 1.5 L 01/14/20 05:10: WBC 7.8, RBC 2.03 L, Hgb 6.5 L*, Hct 19.4 L*, MCV 95.6, MCH 32.0 H, MCHC 33.5, RDW 15.3 H, Plt Count 173, MPV 9.3, Neut # (Auto) 5.0, Lymph # (Auto) 1.7, [place] # (Auto) 0.9, Eos # (Auto) 0.1, Baso # (Auto) 0.0, Absolute Nucleated RBC 0.00, Nucleated RBC % 0.0 01/13/20 20:45: Hgb 8.1 L, Hct 23.8 L 01/13/20 08:24: Blood Type Recheck A POSITIVE 01/13/20 07:30: Sodium 136, Potassium 3.5, Chloride 102, Carbon Dioxide 28, Anion Gap 6.0, BUN 45 H, Creatinine 0.9, Estimated GFR (MDRD) 60 L, Glucose 162 H, Calcium 7.8 L, Total Bilirubin 0.5, AST 15, ALT 17, Alkaline Phosphatase 37 L , Total Protein 4.6 L, Albumin 2.7 L, Globulin 1.9 L, Albumin/Globulin Ratio 1.4, Lipase 36, Ethyl Alcohol < 5.0 01/13/20 07:30: PT 14.2 H, INR 1.3 H 01/13/20 07:30: WBC 9.1, RBC 1.96 L, Hgb 6.3 L*, Hct 19.8 L*, MCV 101.0 H, MCH 32.1 H, MCHC 31.8 L, RDW 12.9, Plt Count 238, MPV 9.5, Neut # (Auto) 7.9 H, Lymph # (Auto) 0.5 L, [place] # (Auto) 0.5, Eos # (Auto) 0.0, Baso # (Auto) 0.0, Absolute Nucleated RBC 0.00, Nucleated RBC % 0.0 01/13/20 06:18: Blood Type A POSITIVE, Antibody Screen NEGATIVE, Crossmatch IS Only See Detail Fish Bones: 01/14/20 05:10 01/14/20 05:10 Home Medications and Allergies Home Medications: Ambulatory Orders Ascorbic Acid [Vitamin C] 500 mg PO DAILY 01/13/20 Aspirin [Aspirin EC] 81 mg PO DAILY 01/13/20 Atorvastatin Calcium 40 mg PO QPM 01/13/20 Chlorthalidone 25 mg PO DAILY 01/13/20 Ferrous Sulfate 325 mg PO DAILYWM 01/13/20 Losartan Potassium 100 mg PO DAILY 01/13/20 carvediloL [Carvedilol] 12.5 mg PO BID 01/13/20 Active Medications Ascorbic Acid (Vitamin C) 500 mg PO DAILY [facility] Atorvastatin Calcium (Lipitor) 40 mg PO QPM [facility] Last Admin: 01/13/20 21:49 Dose: 40 mg Furosemide (Lasix Inj 20mg Vial) 20 mg IVP ONCE PRN PRN Reason: Between units Stop: 01/15/20 06:34 Lactated Ringer's (Lr) 1,000 mls @ 100 mls/hr IV .Q10H [facility] Last Admin: 01/14/20 06:39 Dose: Not Given Potassium Chloride (Potassium Chloride) 10 meq in 100 mls @ 100 mls/hr IV Q1H [facility] Stop: 01/14/20 10:59 Ondansetron HCl (Zofran Inj) 4 mg IVP Q6HR PRN PRN Reason: Nausea / Vomiting Pantoprazole Sodium (Protonix) 40 mg IVP BID [facility] Last Admin: 01/13/20 21:49 Dose: 40 mg Sodium Chloride (Normal Saline Flush 0.9%) 10 ml IVP PRN PRN PRN Reason: NEEDED PER PROVIDER ORDERS Last Admin: 01/13/20 21:49 Dose: 10 ml Sodium Chloride (Normal Saline Flush 0.9%) 10 ml IVP 0100,0900,1700 [facility] Last Admin: 01/14/20 00:39 Dose: Not Given Ascorbic Acid [Vitamin C] 500 mg PO DAILY 01/13/20 Aspirin [Aspirin EC] 81 mg PO DAILY 01/13/20 Atorvastatin Calcium 40 mg PO QPM 01/13/20 Chlorthalidone 25 mg PO DAILY 01/13/20 Ferrous Sulfate 325 mg PO DAILYWM 01/13/20 Losartan Potassium 100 mg PO DAILY 01/13/20 carvediloL [Carvedilol] 12.5 mg PO BID 01/13/20 Allergies/Adverse Reactions: Allergies Allergy/AdvReac Type Severity Reaction Status Date / Time No Known Drug Allergies Allergy Verified 01/13/20 07:36 Anes History & Medical History - Anesthetic History Anesthesia Complications: reports: No previous complications Family history of Anesthesia Complications: Denies Family history of Malignant Hyperthermia: Denies - Medical History Cardiovascular: reports: Hypertension, Coronary artery disease, Valve disorder Pulmonary: reports: None Gastrointestinal: reports: None Urinary: reports: None Neuro: reports: None Musculoskeletal: reports: Osteoarthritis Endocrine/Autoimmune: reports: None Blood Disorders: reports: None Skin: reports: None Smoking Status: Former smoker Psychosocial: reports: No issues indicated - Surgical History Cardiothoracic: CABG (2010), Valve replacement (Bioproshetic valve per patient. in 2010) Gynecologic: Other (Ovarian cystectomy x2.) Orthopedic: Knee replacement Exam General: Alert, Oriented x3, Cooperative, No acute distress Dental: Dentures full Upper Mouth Openin Fingerbreadth Neck Mobility: Normal Mallampati classification: II Respiratory: Decreased breath sounds Cardiovascular: Regular rate, Normal S1, Normal S2, No murmurs Abdomen: Normal bowel sounds, Soft, No tenderness, No hepatospenomegaly, No masses Extremities: No clubbing, No cyanosis, No edema, Normal pulses, No tenderness/swelling Neurological: Normal gait, Normal speech, Strength at 5/5 X4 ext, Normal tone, Sensation intact, Cranial nerves 3-12 NL, Reflexes 2+ Mental/Cognitive Status: Alert/Oriented X3, Normal for patient Cognitive Status: Within normal limits Plan Anesthesia Type: MAC Consent for Procedure(s) Verified and Reviewed: Yes Code Status: Attempt Resuscitation ASA classification: 3-Severe systemic disease Is this case an emergency?: Yes
[2020-01-14] MEDS: ASCORBIC ACID CHEW 500 MG TABLET PO SCH (08:48)
[2020-01-14] MEDS: PANTOPRAZOLE 40 MG VIAL IVP SCH (08:48)
[2020-01-14] MEDS: POTASSIUM CHLOR 10 MEQ/100 ML 10 MEQ/100 ML BAG IV SCH ×3 (08:48→14:17)
--- NOTE | 2020-01-14 10:19 | CONSULTATION NOTE ---
Referring Provider Name of Referring Provider:: [place] Consult Date: 01/13/20 Chief Complaint - Chief Complaint Chief Complaint: Hematemesis History of Present Illness - Admitted From Admitted From:: ED - History Obtained From Records Reviewed: Providers and nurse's notes History obtained from: Provider and patient Exam Limitations: Patient is hard of hearing - History of Present Illness HPI Comment/Other: Jessika is a pleasant lady of 84 years with a significant past medical history. She presented to the ED with several days of abdominal pain that she has been treating with increasing doses or aspirin. She presented to the ED after an episode of significant hematemesis and was found to be profoundly anemic. She was admitted to the Hospitalist service and has received a blood transfusion. She reports she is having less discomfort today. She is continuing to have tarry stools. After 2 units of blood, her hemaglobin is 6.5 this morning. Additional transfusion has been initiated. I have been consulted for consideration of EGD. History - Past Medical History Cardiovascular: reports: Hypertension, Coronary artery disease, Valve disorder Respiratory: reports: None Neuro: reports: None Endocrine/Autoimmune: reports: None GI: reports: None DESKTOP SPECIALIST: reports: Ovarian cysts : reports: None Musculoskeletal: reports: Osteoarthritis Derm: reports: None - Past Surgical History Ortho: reports: Knee replacement /DESKTOP SPECIALIST: reports: Other (Ovarian cystectomy x2.) Cardiovascular: reports: CABG (2010), Valve replacement (Bioproshetic valve per patient. in 2010) - Family & Social History Family History Comment/Other: Reports her father from myocardial infarction at the age of 49. Her mother from breast cancer in her early 50s. Her brother from lung cancer in his 50s. Living arrangement: At home Living Situation: With family Social History Notes: She lives at home with her daughter, Art. She did smoke a pack a day for approximately 30 years but quit before she turned 51. She does drink a glass of wine a few times a week but does not drink on a daily basis. Meds/Allgy - Home Medications Home Medications: Ambulatory Orders Medication Instructions Recorded Confirmed Ascorbic Acid [Vitamin C] 500 mg PO DAILY 01/13/20 01/13/20 Aspirin [Aspirin EC] 81 mg PO DAILY 01/13/20 01/13/20 Atorvastatin Calcium 40 mg PO QPM 01/13/20 01/13/20 Chlorthalidone 25 mg PO DAILY 01/13/20 01/13/20 Ferrous Sulfate 325 mg PO DAILYWM 01/13/20 01/13/20 Losartan Potassium 100 mg PO DAILY 01/13/20 01/13/20 carvediloL [Carvedilol] 12.5 mg PO BID 01/13/20 01/13/20 - Allergies Allergies/Adverse Reactions: Allergies Allergy/AdvReac Type Severity Reaction Status Date / Time No Known Drug Allergies Allergy Verified 01/13/20 07:36 Review of Systems - Constitutional Constitutional: reports: Fatigue, Weakness, Poor appetite. denies: Fever, Chills - Eyes Eyes: denies: Pain, Blurred vision - Ears, Nose & Throat Ears, Nose & Throat: reports: Vertigo. denies: Tinnitus - Cardiovascular Cariovascular: reports: Lightheadedness, Exertional dyspnea. denies: Irregular heart rate, Palpitations, Chest pain - Respiratory Respiratory: denies: Cough, Sputum production, Wheezing - Gastrointestinal Gastrointestinal: reports: Abdominal pain, Black stools, Vomiting, [place] blood emesis - Genitourinary Genitourinary: denies: Dysuria - Musculoskeletal Musculoskeletal: reports: Muscle pain, Back pain - Integumentary Integumentary: denies: Rash - Neurological Neurological: denies: Focal weakness, Headache - Psychiatric Psychiatric: denies: Depression - Endocrine Endocrine: denies: Polyuria, Polydypsia - Hematologic/Lymphatic Hematologic/Lymphatic: reports: Anemia, Bruising - All Other Systems All Other Systems: reports: Reviewed and negative Exam - Vital Signs Reviewed Vital Signs: Yes Vital Signs: Vital Signs x48h Temp Pulse Pulse Resp BP BP Pulse Ox 01/14/20 08:31 36.6 C 77 18 125/45 L 01/14/20 08:21 37.1 C 85 136/49 H 01/14/20 08:16 36.6 C 85 18 139/48 H 01/14/20 07:32 37 C 90 18 139/48 H 97 01/14/20 03:45 37.1 C 90 16 131/51 H 96 - Physical Exam General Appearance: positive: No acute distress, Alert Eyes Bilateral: positive: Normal inspection, PERRL, EOMI ENT: positive: ENT inspection nml Neck: positive: Nml inspection Respiratory: positive: Chest non-tender, No respiratory distress Cardiovascular: positive: Regular rate & rhythm Peripheral Pulses: positive: 0 Abdomen: positive: Tenderness, Other (Mild tendeness to palpation in the epigas trum but no rebound or guarding.). negative: Guarding, Rebound Back: positive: Nml inspection Skin: positive: Color nml Extremities: positive: Non-tender Neurologic/Psychiatric: positive: Oriented x3 Conclusion and Plan - Lab Results Laboratory Results 01/14/20 05:10: Vitamin B12 90 L, Folate 9.92 01/14/20 05:10: Sodium 135, Potassium 2.8 L, Chloride 102, Carbon Dioxide 28, Anion Gap 5.0 L, BUN 31 H, Creatinine 0.9, Estimated GFR (MDRD) 60 L, Glucose 111 H, Calcium 8.0 L, Phosphorus 2.7, Magnesium 1.5 L 01/14/20 05:10: WBC 7.8, RBC 2.03 L, Hgb 6.5 L*, Hct 19.4 L*, MCV 95.6, MCH 32.0 H, MCHC 33.5, RDW 15.3 H, Plt Count 173, MPV 9.3, Neut # (Auto) 5.0, Lymph # (Auto) 1.7, [place] # (Auto) 0.9, Eos # (Auto) 0.1, Baso # (Auto) 0.0, Absolute Nucleated RBC 0.00, Nucleated RBC % 0.0 01/13/20 20:45: Hgb 8.1 L, Hct 23.8 L 01/13/20 15:00: Urine Color YELLOW, Urine Clarity CLEAR, Urine pH 6.0, Ur Specific [place] 1.020, Urine Protein NEGATIVE, Urine Glucose (UA) NEGATIVE, Urine Ketones NEGATIVE, Urine Occult Blood MODERATE H, Urine Nitrite POSITIVE H, Urine Bilirubin NEGATIVE, Urine Urobilinogen 0.2 (NORMAL), Ur Leukocyte Esterase NEGATIVE, Urine RBC 0-5, Urine WBC 0-3, Ur Squamous Epith Cells MOD Squamous H, Urine Bacteria Many H, Ur Microscopic Review INDICATED, Urine Culture Comments NOT INDICATED 01/13/20 08:24: Blood Type Recheck A POSITIVE 01/13/20 07:30: Sodium 136, Potassium 3.5, Chloride 102, Carbon Dioxide 28, Anion Gap 6.0, BUN 45 H, Creatinine 0.9, Estimated GFR (MDRD) 60 L, Glucose 162 H, Calcium 7.8 L, Total Bilirubin 0.5, AST 15, ALT 17, Alkaline Phosphatase 37 L, Total Protein 4.6 L, Albumin 2.7 L, Globulin 1.9 L, Albumin/Globulin Ratio 1. 4, Lipase 36, Ethyl Alcohol < 5.0 01/13/20 07:30: PT 14.2 H, INR 1.3 H 01/13/20 07:30: WBC 9.1, RBC 1.96 L, Hgb 6.3 L*, Hct 19.8 L*, MCV 101.0 H, MCH 32.1 H, MCHC 31.8 L, RDW 12.9, Plt Count 238, MPV 9.5, Neut # (Auto) 7.9 H, Lymph # (Auto) 0.5 L, [place] # (Auto) 0.5, Eos # (Auto) 0.0, Baso # (Auto) 0.0, Absolute Nucleated RBC 0.00, Nucleated RBC % 0.0 01/13/20 06:18: Blood Type A POSITIVE, Antibody Screen NEGATIVE, Crossmatch IS Only See Detail - Diagnostic Imaging Results Diagnostic Imaging Results Comments: Nothing to review - Diagnosis Diagnosis: Upper GI hemorrhage in the setting of significant NSAID use. - Plan Plan: I have recommended urgent EGD this AM with maneuvers to stop bleeding as indicated. We have discussed the risks and benefits and the patient has expressed a desire to complete the procedure this morning.
[2020-01-14] MEDS ORDERED: BENZOCAINE/TETRACAINE/BUTAMBEN 20 GM TOP ONE (11:05)
[2020-01-14] MEDS ORDERED: BENZOCAINE/TETRACAINE/BUTAMBEN 20 GM ONE (11:05)
[2020-01-14] MEDS ORDERED: LACTATED RINGERS 1,000 ML IV ONE (11:06)
--- NOTE | 2020-01-14 12:15 | OPERATIVE REPORT ---
Operative Report - General Admit Date: 01/13/20 Procedure Date: 01/14/20 Planned Procedure: EGD with indicated procedures Pre-Op Diagnosis: GI Hemorrhage Procedure Performed: EGD with biopsy Post Op Diagnosis: Upper GI hemorrhage - Procedure Note Primary Surgeon: Laith Anesthesia Provider: FRANKLIN Olivares Anesthesia Technique: MAC Pathology: Mucosal biopsy of the gastric body Estimated Blood Loss (mL): 1 Findings: 1. 1 cm lesser curve ulceration covered with fibrinous exudate 2. 1.5 cm ulceration of the pyloric channel - no active bleeding - covered with fibrinous exudate 3. 0.5 cm ulceration of the fundus - covered with fibrinous exudate 4. Moderate duodenitis Complications: None apparent - Other Other Information/Narrative: After obtaining informed consent, the patient is brought to the GI suite. The posterior oropharynx was anesthetized with Cetacaine spray. Following placement of appropriate monitors, the patient was placed in the left lateral decubitus position. When appropriate level of sedation had been achieved, the gastroscope was gently passed into the patient's posterior oropharynx and advanced to the third portion of the duodenum. The scope was then withdrawn carefully being sure to go performed beyond all mucosal folds and prominences and get an excellent examination. The findings are noted above. In the fundus of the sto mach, a mucosal biopsy was obtained for both pathology and helical factor studies. The scope was withdrawn to the level of the GE junction. The patient is noted to have a 10 cm hiatal hernia. There was no active bleeding of any of the identified ulcerations.The scope was then gently withdrawn from the patient's posterior oropharynx. She was allowed to awaken from anesthesia. All instrument counts were correct at the conclusion of the case. The patient tolerated the procedure well and was taken to the postanesthesia care unit in satisfactory condition.
[2020-01-14] MEDS: CYANOCOBALAMIN 500 MCG TABLET PO SCH (13:35)
[2020-01-14 14:51] LABS: HGB - HEMOGLOBIN 9.6 g/dL (12.0-16.0)
[2020-01-14] MEDS: SUCRALFATE 1 GM/10 ML UDC PO SCH ×2 (16:37→22:35)
--- NOTE | 2020-01-14 17:38 | Discharge Plan ---
Discharge Plan Problem Reviewed?: Yes Disposition: Home, Self Care Condition: Good Prescriptions: Cyanocobalamin (Vitamin B-12) [Vitamin B-12] 1,000 mcg PO DAILY #30 capsule Pantoprazole [Protonix] 40 mg PO BID #60 tablet Potassium Chloride 10 meq PO DAILY #30 tablet.er Sucralfate [Carafate] 1 gm PO QID #200 ml Diet: Cardiac Activity Restrictions: Activity as Tolerated Shower Restrictions: No Instruction Topics: Gastric Ulcer, COVID-19 [facility], COVID-19 [facility] Department Statement, Flu and Cold: Nutrition, Prevention and Treatment Tips Health Concerns: You were seen in the hospital because you had vomited blood at home and your blood counts were low. You underwent an endoscopy which showed you had ulcers in your stomach and your duodenum which is the first part of your small intestine. This was likely due to the large amounts of aspirin you had been taking for arthritis. Fortunately there was no further evidence of bleeding and your blood counts have remained stable. It is important that you stop taking high-dose Advil and do not take nonsteroidal anti-inflammatory drugs such as Advil, naproxen, ibuprofen, motrin. You can continue to take a baby aspirin a day. Your vitamin B12 levels were also found to be low. Please take 1,000 mcg of vitamin B12 a day. Please follow-up with your primary care provider to monitor these levels. Plan of Treatment: Please take Protonix 40 mg twice daily for 30 days as this will help decrease the production of acid in your stomach and help heal the ulcers. You should be taking 40 mg daily after 30 days. I have also prescribed you Carafate which can help with abdominal pain due to ulcers. You can take this up to 4 times a day. It is more important to take the Protonix as that suppresses acid. You may continue to take a baby aspirin a day but please avoid high dose aspirin. Please also take the vitamin B12 as prescribed once a day. There were no other changes made to your medication. Care Goals: Please follow-up with your primary care provider within 1 week. If you develop any further episodes of bleeding or become increasingly fatigued, pale, lightheaded, dizzy then please return to the emergency department or call your primary care provider. Assessment: Patient expressed understanding of the treatment plan. No Smoking: If you smoke, Please STOP! Call for help. Follow-up with: Tatianna Freeman MD [Primary Care Provider] -
[2020-01-14 20:34] LABS: HGB - HEMOGLOBIN 9.8 g/dL (12.0-16.0)
[2020-01-14] MEDS: ATORVASTATIN 40 MG TABLET PO SCH (20:35)
[2020-01-14] MEDS: PANTOPRAZOLE 40 MG TABLET PO SCH (20:35)
[2020-01-14] MEDS: carvediloL 12.5 MG TABLET PO SCH (20:35)
[2020-01-14] MEDS ORDERED: traZODone 50 MG TABLET PO SCH (21:00)
[2020-01-15] MEDS: SODIUM CHLORIDE FLUSH 0.9% 10 ML SYRINGE IVP SCH ×2 (00:57→08:15)
[2020-01-15 05:58] LABS: BASOPHILS % (AUTO) 0.7 %; EOSINOPHILS # (AUTO) 0.4 10^3/uL (0.0-0.7); EOSINOPHILS % (AUTO) 5.7 %; HGB - HEMOGLOBIN 8.7 g/dL (12.0-16.0); LYMPHOCYTES # (AUTO) 1.4 10^3/uL (1.5-3.5); LYMPHOCYTES % (AUTO) 22.2 %; MEAN CORPUSCULAR HEMOGLOBIN 30.6 pg (27.0-31.0); MEAN CORPUSCULAR HGB CONC 32.6 g/dL (32.0-36.0); MEAN PLATELET VOLUME 9.2 fL (7.9-10.8); MONOCYTES # (AUTO) 0.7 10^3/uL (0.0-1.0); MONOCYTES % (AUTO) 12.2 %; NEUTROPHILS # (AUTO) 3.6 10^3/uL (1.5-6.6); NEUTROPHILS % (AUTO) 58.9 %; PLT - PLATELET COUNT 175 10^3/uL (130-450); RED BLOOD COUNT 2.84 10^6/uL (4.20-5.40); RED CELL DISTRIBUTION WIDTH 15.8 % (12.0-15.0); WHITE BLOOD COUNT 6.1 x10^3/uL (4.8-10.8)
[2020-01-15 06:10] LABS: CALCIUM 8.2 mg/dL (8.5-10.3); CREATININE 0.9 mg/dL (0.4-1.0); MAGNESIUM 1.4 mg/dL (1.7-2.8); PHOSPHORUS 3.1 mg/dL (2.5-4.6)
[2020-01-15] MEDS: SUCRALFATE 1 GM/10 ML UDC PO SCH ×2 (06:27→10:29)
[2020-01-15] MEDS ORDERED: POTASSIUM CHLORIDE 20 MEQ TABLET PO ONE (08:00)
[2020-01-15] MEDS: PANTOPRAZOLE 40 MG TABLET PO SCH (08:09)
[2020-01-15] MEDS: CYANOCOBALAMIN 500 MCG TABLET PO SCH (08:09)
[2020-01-15] MEDS: carvediloL 12.5 MG TABLET PO SCH (08:10)
[2020-01-15] MEDS: ASCORBIC ACID CHEW 500 MG TABLET PO SCH (08:10)
[2020-01-15] MEDS ORDERED: ASPIRIN EC 81 MG TABLET PO SCH (09:00)
[2020-01-15] MEDS ORDERED: LOSARTAN 50 MG TABLET PO SCH (09:00)
[2020-01-15] MEDS ORDERED: CHLORTHALIDONE 25 MG TABLET PO SCH (09:00)
[2020-01-15] MEDS ORDERED: MAGNESIUM OXIDE 400 MG TABLET PO SCH (10:00)
--- NOTE | 2020-01-15 10:38 | DISCHARGE SUMMARY ---
"Discharge Summary Admit Date: 01/13/20 Discharge Date: 01/15/20 Discharging Provider: Lan Durán Primary Care Provider: Tatianna Freeman Code Status: Do Not Attempt Resuscitation Condition at Discharge: Good Discharge Disposition: 01 Home, Self Care - DIAGNOSES Admission Diagnoses: Upper GI bleed Acute blood loss anemia Coronary artery disease Hypertension History of aortic valve placement with bioprosthetic valve Discharge Diagnoses with Status of Each Condition: Upper GI bleed - resolved. This was likely secondary to the ulcers and duodenitis due to her high-dose aspirin use. See below for EGD report. She was discharged on Protonix 40 mg twice daily for 1 month and Carafate 1 g 4 times daily. Acute blood loss anemia - resolved. She required 4 units of packed red blood cells during this admission. Her hemoglobin has been stable after the endoscopy. Her hemoglobin is 9.7 on discharge. Coronary artery disease - stable. Her home meds have been resumed including a baby aspirin which general surgery said it was okay for her to continue. Hypertension - stable. Her home meds will be continued. History of aortic valve placement with bioprosthetic valve - stable. Vitamin B12 deficiency - stable. Her vitamin B12 was low at 90. She was started on 1000 mcg a day. She can follow-up with her primary care provider. - HPI History of Present Illness: This is a 84-year-old female with a past medical history significant for coronary artery disease status post CABG, history of aortic valve replacement with a bioprosthetic valve, hypertension, arthritis who presents today after having hematemesis at home. She states that this morning she woke up at around 4:40 AM and had some epigastric pain and nausea. She went to the bathroom and she had a large episode of hematemesis. She then had a bowel movement and noticed her stool was dark.. She had another episode of hematemesis after EMS had arrived. She reports she has been taking full dose aspirin 3 tablets twice a day for the past month to help with her arthritis pain. She has never had endoscopy but she did have a colonoscopy over 10 years ago which was unremarkable to her knowledge. She currently reports some mild epigastric discomfort but no significant abdominal pain. She reports no nausea or vomiting at this time. She would like to drink some water. She reports feeling fatigued and weak since yesterday evening. She reports no chest pain, dyspnea, fevers, chills. She does drink a glass of wine a few times a week with her last beverage being yesterday. She does not drink alcohol on a daily basis. In the emergency department, she is on be afebrile temperature of 36.9 C. She is tachycardic with a heart of 95. Blood pressure is 124/49. She is not tachypneic and saturating well on room air. Labs are significant for hemoglobin of 6.3. Her INR was 1.3. BUN is elevated at 45. She was given 1 unit of blood in the emergency department and medicine was consulted for admission. The em ergency department provider did speak with general surgery and they are aware of the patient for endoscopy. I did discuss goals of care the patient and she would like to be a DNR with no heroic measures. - CONSULTS | PROCEDURES Consultations: General Surgery Procedures: Endoscopy on January 13: 1. 1 cm lesser curve ulceration covered with fibrinous exudate 2. 1.5 cm ulceration of the pyloric channel - no active bleeding - covered with fibrinous exudate 3. 0.5 cm ulceration of the fundus - covered with fibrinous exudate 4. Moderate duodenitis - HOSPITAL COURSE Hospital Course: Admitted to the floor for upper GI bleed and acute blood loss anemia. She was given 2 units of packed red blood cells for hemoglobin of 6.3. This had improved to 8.1 that evening but the following morning it had dropped once again to 6.5. He was given another 2 units of packed red blood cells and hemoglobin improved to 9.6. She was treated with Protonix IV twice daily while hospitalized. She had no physical evidence of bleeding. Renal surgery was consulted for endoscopy which was performed January 13 and revealed a 1 cm lesser curvature ulceration covered with fibrinous exudate, a 1.5 cm ulceration of the pyloric channel covered with fibrinous exudate, 0.5 cm ulceration of the fundus covered with fibrinous exudate, and moderate duodenitis. She started on a clear liquid diet and monitored overnight for further signs of bleeding. She had no evidence of bleeding and her hemoglobin stabilized. Did discuss with general surgery and they felt it was okay for the patient to continue baby aspirin but she must avoid all other NSAIDs including high-dose aspirin. She was discharged home on Protonix 40 mg twice daily and Carafate 1 g 4 times daily. During his hospitalization, she is on to have a vitamin B12 deficiency with a level less than 100. She was started on oral vitamin B12 1000 mcg a day. - ALLERGIES Allergies/Adverse Reactions: Allergies Allergy/AdvReac Type Severity Reaction Status Date / Time No Known Drug Allergies Allergy Verified 01/13/20 07:36 - MEDICATIONS Home Medications: Ambulatory Orders Medication Instructions Recorded Confirmed Ascorbic Acid [Vitamin C] 500 mg PO DAILY 01/13/20 01/13/20 Aspirin [Aspirin EC] 81 mg PO DAILY 01/13/20 01/13/20 Atorvastatin Calcium 40 mg PO QPM 01/13/20 01/13/20 Chlorthalidone 25 mg PO DAILY 01/13/20 01/13/20 Ferrous Sulfate 325 mg PO DAILYWM 01/13/20 01/13/20 Losartan Potassium 100 mg PO DAILY 01/13/20 01/13/20 carvediloL [Carvedilol] 12.5 mg PO BID 01/13/20 01/13/20 Cyanocobalamin (Vitamin B-12) 1,000 mcg PO DAILY #30 capsule 01/15/20 [Vitamin B-12] Pantoprazole [Protonix] 40 mg PO BID #60 tablet 01/15/20 Sucralfate [Carafate] 1 gm PO QID #200 ml 01/15/20 - PHYSICAL EXAM AT DISCHARGE General Appearance: positive: No acute distress, Alert Eyes Bilateral: positive: Normal inspection, Conjunctivae nml ENT: positive: ENT inspection nml Neck: positive: Nml inspection Respiratory: positive: No respiratory distress Cardiovascular: positive: Regular rate & rhythm. negative: Irregularly irregular, Tachycardia, Bradycardia Abdomen: positive: Non-tender, No distention. negative: Tenderness, Guarding, Rebound Skin: positive: Warm, Dry. negative: Pallor Extremities: positive: Full ROM, No pedal edema Neurologic/Psychiatric: positive: Oriented x3, Motor nml. negative: Disoriented to person, Disoriented to place, Disoriented to time - LABS Result Diagrams: 01/15/20 12:04 01/15/20 05:30 Other Lab Results: Vital Signs - 24 hr 01/14/20 01/14/20 01/14/20 13:33 15:47 20:19 Temperature 36.9 C 36.7 C 37.0 C Heart Rate 80 Heart Rate [ 85 82 Brachial] Respiratory 18 24 20 Rate Blood Pressure 132/54 H Blood Pressure 151/58 H 149/62 H [Right Brachial artery] O2 Saturation 99 97 01/14/20 01/15/20 01/15/20 23:40 04:05 07:59 Temperature 36.5 C 36.5 C 37.2 C Heart Rate Heart Rate [ 75 78 74 Brachial] Respiratory 16 16 18 Rate Blood Pressure Blood Pressure 124/70 149/47 H 131/53 H [Right Brachial artery] O2 Saturation 96 97 96 01/15/20 12:54 Temperature 37 C Heart Rate Heart Rate [ 61 Brachial] Respiratory Rate Blood Pressure Blood Pressure 120/43 L [Right Brachial artery] O2 Saturation 95 - DIAGNOSTIC IMAGING Diagnostic Imaging Results: Final report reviewed - FOLLOW UP Follow Up: She will follow-up with her primary care provider within 1 week. - TIME SPENT Time Spent in Discharge (Minutes): 32"
[2020-01-15 12:09] LABS: HGB - HEMOGLOBIN 9.7 g/dL (12.0-16.0)
[2020-01-15 12:13] LABS: HGB - HEMOGLOBIN 9.7 g/dL (12.0-16.0)
[2020-01-15 12:56] VITALS: BP 120/43
[2020-01-15] MEDS ORDERED: traZODone 50 MG TABLET PO SCH (21:00)
== END 2020-01-15 14:28 | disposition home or self-care (01) | DRG 378 ==
LOC: ED 06:54 → MS2 09:08
PROVIDERS: ADMIT Internal Medicine; ATTEND Internal Medicine
PROC: 30233N1 Transfusion of Nonautologous Red Blood Cells into Peripheral Vein, Percutaneous Approach (ICD-10-PCS; 2020-01-14)
PROC: 0DB68ZX Excision of Stomach, Via Natural or Artificial Opening Endoscopic, Diagnostic (ICD-10-PCS; principal; 2020-01-14 10:15)
DX: K92.0 Hematemesis (principal); D64.9 Anemia, unspecified; K25.4 Chronic or unspecified gastric ulcer with hemorrhage; D62 Acute posthemorrhagic anemia; E87.6 Hypokalemia; K29.81 Duodenitis with bleeding; Z72.89 Other problems related to lifestyle; T39.015A Adverse effect of aspirin, initial encounter; T39.395A Adverse effect of other nonsteroidal anti-inflammatory drugs [NSAID], initial encounter; Y92.009 Unspecified place in unspecified non-institutional (private) residence as the place of occurrence of the external cause; K44.9 Diaphragmatic hernia without obstruction or gangrene; I25.10 Atherosclerotic heart disease of native coronary artery without angina pectoris; I10 Essential (primary) hypertension; E53.8 Deficiency of other specified B group vitamins; M19.90 Unspecified osteoarthritis, unspecified site; Z66 Do not resuscitate; Z79.82 Long term (current) use of aspirin; Z79.1 Long term (current) use of non-steroidal anti-inflammatories (NSAID); Z95.3 Presence of xenogenic heart valve; Z95.1 Presence of aortocoronary bypass graft; Z87.891 Personal history of nicotine dependence
CPT/HCPCS: 36415; 36430; 80048; 80053; 81001; 82607; 82746; 83690; 83735; 84100; 85014; 85018; 85025; 85610; 86850; 86900; 86901; 86920; 93005; 96365; 96375; 99284; 99285; A9270; J3411; J7120; P9016; 80320; 81003; 87086